=== PATIENT | male | born 1985 | race Caucasian/White ===

== ENCOUNTER 2019-02-09 07:23 | Inpatient (IN) ==
[2019-02-09] MEDS ORDERED: Albuterol 2.5 MG/3 ML NEBULIZER IH ONE (08:09)
[2019-02-09] MEDS ORDERED: CeFAZolin Syr 2,000MG/20 ML 2,000 MG/20 ML SYRINGE IVPB ONE (08:09)
[2019-02-09] MEDS ORDERED: Ringers Solution, Lactated 1,000 ML IVC SCH (08:15)
[2019-02-09] MEDS ORDERED: *HR* Midazolam HCl 2 MG/2 ML VIAL ONE (08:17)
[2019-02-09] MEDS ORDERED: *HR* FentaNYL (PF) 100 MCG/2 ML VIAL ONE (08:17)
[2019-02-09] MEDS ORDERED: *HR* Propofol 200 MG/20 ML VIAL IVP ONE (08:17)
[2019-02-09] MEDS ORDERED: Acetaminophen IV 1,000 MG/100 ML INFUS..BTL IVPB ONE (08:19)
[2019-02-09] MEDS ORDERED: *HR* Labetalol 20 MG/4 ML SYRINGE IVP PRN (08:19)
[2019-02-09] MEDS ORDERED: *HR* Rocuronium Bromide 50 MG/5 ML VIAL ONE (08:19)
[2019-02-09] MEDS ORDERED: Ketorolac 30 MG/ML VIAL IVP ONE (08:19)
[2019-02-09] MEDS ORDERED: Famotidine 20 MG/2 ML VIAL IVP ONE (08:19)
[2019-02-09] MEDS ORDERED: Gabapentin 300 MG CAPSULE PO ONE (08:19)
[2019-02-09] MEDS ORDERED: Ondansetron 4 MG/2 ML VIAL ONE (08:19)
[2019-02-09] MEDS ORDERED: Ondansetron 4 MG/2 ML VIAL IVP ONE (08:19)
[2019-02-09] MEDS ORDERED: Lidocaine -MPF 2% 2 ML VIAL ONE ×2 (08:19→09:24)
[2019-02-09] MEDS ORDERED: *HR* OxyCODONE Immed Rel 5 MG TABLET PO PRN (08:19)
[2019-02-09] MEDS ORDERED: *HR* HYDROmorphone (PF) 1 MG/ML SYRINGE IVP PRN (08:19)
[2019-02-09] MEDS ORDERED: Dexamethasone 4 MG/ML VIAL ONE (08:19)
[2019-02-09] MEDS ORDERED: *HR* Promethazine 25 MG/ML VIAL IVP PRN (08:19)
[2019-02-09] MEDS ORDERED: *HR* Succinylcholine 200 MG/10 ML VIAL IVP ONE (08:19)
[2019-02-09] MEDS ORDERED: Ketorolac 30 MG/ML VIAL ONE (08:20)
--- NOTE | 2019-02-09 08:23 | Anesthesia Evaluation PreOp ---
Date of Encounter: 02/09/19 Time of Encounter: 08:21 - Past History Planned Operation: bronch, right chest wall resection, robotic RUL resecti Cardiac History: Denies any Significant Hx Pulmonary History: Smoker (1/2 ppd), Other (pulmonary nodule) Other Medical History: Denies Any Significant HX Anesthesia History: No Prior Anesthetic Complications, Past Anesthesia (cystic hygroma removal 3 months old right chest) Alcohol Use: none Drug use: none Medications and Allergies RX: No Known Home Drugs 02/09/19 [History] Allergy/AdvReac Type Severity Reaction Status Date / Time No Known Allergies Allergy Verified 02/09/19 07:48 - Meds/Allergy Pre-op Review Medications Reviewed: Yes Allergies Reviewed: Yes Beta Blockers on Current Med List: No Anesthesia Results - Labs Laboratory Tests 01/13/19 01/13/19 14:52 14:52 WBC 12.9 H Hgb 14.7 Hct 44.8 Plt Count 268 Sodium 138 Potassium 3.9 Chloride 106 Carbon Dioxide 25 BUN 14 Creatinine 0.83 Est GFR (Non-Af Amer) > 60 - Imaging EKG: report reviewed Additional studies: PFT 01/2019 INTERPRETATION: Adequate for Interpretation Spirometry shows mild airway restrictive disease and FEV1 is reversible with postbronchodilator FEV1 is 4 L and 85% predicted. Following Bronchodilator, there is improvement in FEV1 by 11%. Lung Volumes Total lung capacity moderately reduced suggesting restrictive lung defect. Diffusion Capacity is normal. Flow Volume Loop: Normal. Anesthesia Exam Vital Signs/O2 Sat/Glucose, Most Recent Temp Pulse Resp BP Pulse Ox 97.7 F 102 18 128/83 97 02/09/19 07:39 02/09/19 07:39 02/09/19 07:39 02/09/19 07:39 02/09/19 07:39 - HEENT Pupil (Motor): Pupils equal Mallampati: II Teeth: Normal Oral Opening: Greater than 3 - RAILROAD CARMAN LOC: Oriented RAILROAD CARMAN Motor: Normal RUE, Normal LUE, Normal RLE, Normal LLE, Normal Face RAILROAD CARMAN Sensory: Normal: RUE, LUE, RLE, LLE, Face - Cardiac Rhythm: Regular Murmur: None - Pulmonary Breath Sounds: bilateral Clear Respiratory Effort: Symmetrical Anesthesia Assess/Plan ASA Score: 2 Level of consciousness: Cooperative, Oriented Anesthetic Plan: General Monitoring Plan: Standard Monitors Recovery Plan: PACU
--- NOTE | 2019-02-09 08:34 | History & Physical Report ---
Date of Encounter: 02/09/19 Time of Encounter: 08:33 24 Hour HP Update - Instructions Instructions: If the History and Physical is less than 30 days old and was completed prior to A.M. admission and or procedure and has NOT been updated on calendar day of procedure please complete this update prior to performing procedure. - Update Patient reports changes in Medical Condition: No Changes in examination, assessment, or condition: No Changes in Medication: No Preop tests/diagnostics Reviewed: Yes Pre-Op MRSA Screen: Negative Surgery Remains Indicated: Yes Consent for Planned Operative Procedure(s) Verified: Yes - Pre-Operative Checklist Preoperative Checklist Indicated: Yes Prophylactic Antibiotic Ordered: Yes Home Medications Include Beta Sho: No Beta Sho Taken Today (Day of Surgery): No Beta Sho Taken Yesterday (Day Prior to Surgery): No Is VTE Prophylaxis Indicated?: Yes
[2019-02-09] MEDS ORDERED: *HR* PHENYLEPHRINE 1,000 MCG/10 ML SYRINGE IVP ONE (09:33)
[2019-02-09] MEDS ORDERED: *HR* HYDROMORPHONE 2 MG/ML VIAL ONE (09:35)
[2019-02-09] MEDS ORDERED: EPHEDrine 50 MG/ML VIAL ONE (10:05)
--- NOTE | 2019-02-09 10:32 | Operative Note ---
Date of procedure: 02/09/19 Pre-op diagnosis: chest wall mass Post-op diagnosis: other (15 cm soft tissue encapsulated abscess) Procedure: resection of chest wall 15 cm abscess, soft tissue flaps Anesthesia: GETA Surgeon: Abel Patel Was there an portfolio assistant present: No Estimated blood loss (cc): 10 Specimen: cultures and permanent Condition: stable Disposition: PACU Procedure in Detail: This is a operative note on Fausto Morris. Patient was brought to the operating room and placed on the operating room table in the supine position. After undergoing general anesthesia with sequential compressive devices on bilateral lower extremities and perioperative antibiotics on board he was placed on the operating room table in the left lateral decubitus position with care to pad all pressure points. He was prepped and draped in usual sterile fashion. The previous chest incision that was performed when the patient was approximately 3 months of age for a cystic hygroma which occurs 20% of the time outside of the neck, was incised. Deep soft tissue flaps were performed circumferentially and deep to the current chest wall ABSCESS. THE WELL ENCAPSULATED ABSCESS WAS COMPLETELY EXCISED WITH A CAPSULECTOMY. INTRAOPERATIVE CULTURES WERE OBTAINED AND PERMANENT SPECIMEN SENnt. A 19-Slovak Marbin drains 2 were placed through separate skin incisions and secured into place with silk suture. Incision was then closed with interrupted 0 Vicryl deep sutures of running 3-0 Vicryl superficial dermis and then a 4-0 Monocryl subcuticular stitch with dressings consisting of Steri-Strips and sterile gauze. Patient was extubated taken to the recovery room breathing spontaneously and hemodynamically stable.
--- NOTE | 2019-02-09 10:54 | Anesthesia Evaluation Post Op ---
Date of Encounter: 02/09/19 Time of Encounter: 10:54 - Vital Signs Vital Signs: Vital Signs/O2 Sat/Glucose, Most Recent Temp Pulse Resp BP Pulse Ox 98.0 F 92 18 126/81 98 02/09/19 10:31 02/09/19 10:41 02/09/19 10:41 02/09/19 10:41 02/09/19 10:41 - Lungs Lungs: Clear Ascult./Percussion - Airway Airway: Non-obstructed - Cardiovascular Regular Rate - Mental Status Mental Status: Alert & Oriented, Answers Appropriately - Pain Pain Scale: 2 - Nausea Vomiting Nausea Vomiting: Not Present - Hydration Hydration: NPO - Discharge PostOp Status: Transfer Patient to floor
[2019-02-09] MEDS ORDERED: Ondansetron 4 MG/2 ML VIAL IVP PRN (12:08)
[2019-02-09] MEDS: 0.9 % Sodium Chloride 1,000 ML IVC SCH (12:23)
[2019-02-09] MEDS: Ketorolac 15 MG/ML VIAL IVP SCH ×2 (12:25→17:27)
[2019-02-09] MEDS: *HR* HYDROcodone/Acet 5/325 mg TABLET PO PRN ×2 (13:19→17:27)
[2019-02-09] MEDS: Gabapentin 300 MG CAPSULE PO SCH ×2 (15:41→20:19)
[2019-02-09] MEDS: Sulfamethoxazole/Trimeth DS 1 EACH TABLET PO SCH (20:19)
[2019-02-10] MEDS: Ketorolac 15 MG/ML VIAL IVP SCH ×4 (00:29→17:49)
[2019-02-10] MEDS: 0.9 % Sodium Chloride 1,000 ML IVC SCH (01:44)
[2019-02-10] MEDS: *HR* HYDROcodone/Acet 5/325 mg TABLET PO PRN ×2 (03:20→16:15)
[2019-02-10] MEDS: Gabapentin 300 MG CAPSULE PO SCH ×3 (08:48→20:41)
[2019-02-10] MEDS: Sulfamethoxazole/Trimeth DS 1 EACH TABLET PO SCH ×2 (08:48→20:41)
--- NOTE | 2019-02-10 09:43 | Cardiothoracic Progress Note ---
Date of Encounter: 02/10/19 Time of Encounter: 09:40 - Assessment and plan (1) Abscess of chest wall Current Visit: Yes Status: Acute The assessment and plan as outlined above was discussed with the patient and/or family members who expressed understanding and agreement. All questions were answered. rounded with nurse stop ivf, tele and continuous pulse ox. awaiting OR cultures. Vital Signs, Last 4 Hours Temp Pulse Resp BP Pulse Ox 02/10/19 07:19 97.6 F 68 18 122/80 98 Oxgyen Flow Rate Oxygen Flow Rate (LPM) 0 Clinical Data, last 8 Hours Output, Urine Amount 450 Weight 02/08/19 02/09/19 02/10/19 23:59 23:59 23:59 Weight 95.254 kg 100.2 kg - Physical Examination General: Conversant, No Apparent Distress, Well developed, Well nourished HEENT: Atraumatic, Normocephaly Cardiac: Reg Rate and Rhythm, Normal S1 and S2, No Murmur Incision: No signs of infection, Dry/intact dressing Lungs: Normal Breath Sounds Neuro: Alert and responsive, No focal deficits noted, Cranial nerves intact, Motor nerves intact Skin: Other Consult Discharge Plan - Plan Referrals: Rosita Mcintyre, TRANSFER STATION ATTENDANT [Primary Care Provider] -
[2019-02-11] MEDS: Ketorolac 15 MG/ML VIAL IVP SCH ×2 (00:11→05:12)
[2019-02-11] MEDS: *HR* HYDROcodone/Acet 5/325 mg TABLET PO PRN (06:00)
[2019-02-11] MEDS: Sulfamethoxazole/Trimeth DS 1 EACH TABLET PO SCH (07:25)
[2019-02-11] MEDS: Gabapentin 300 MG CAPSULE PO SCH (07:25)
--- NOTE | 2019-02-11 07:34 | Discharge Summary ---
Orders not resulted at time of discharge: Pending orders 02/01/19 07:06 Red Blood Cells [BBK] Routine 02/09/19 09:35 AFB Culture, Body Fluid [TB] Routine AFB Smear [TB] Routine Culture,Anaerobic [RM] Routine Culture,Body Fluid [RM] Routine Fungal Culture [MYC] Routine 02/09/19 09:52 Surgical Pathology [PTH] Routine Date of Encounter: 02/11/19 Time of Encounter: 07:15 - Discharge Diagnosis (1) Abscess of chest wall Priority: Primary Status: Acute - Hospital Course Hospital course: Mr. 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 The patient had a recurrent mass in the same area and chest CT revealed a 15 cm diameter well encapsulated cystic mass. He underwent right lateral chest wall mass excision. His postoperative course was uncomplicated. He was discharged home on POD #2 with two NANCY drains in place. These were immediately removed in the office by Dr. Abel Patel. - Time Spent with Patient Total time spent providing and/or coordinating discharge services: - Discharge Medications Prescriptions: New Sulfamethoxazole/Trimeth DS [Bactrim Ds] 1 each PO BID tablet Home Medications: Sulfamethoxazole/Trimeth DS [Bactrim Ds] 1 each PO BID tablet 02/11/19 [Rx] Allergies/Adverse Reactions: Allergy/AdvReac Type Severity Reaction Status Date / Time No Known Allergies Allergy Verified 02/09/19 07:48 Date of admission: 02/09/19 11:28 Primary care physician: Rosita Mcintyre CNP Procedure(s) Performed: 1. Right lateral chest wall mass excision performed 02/09/2019. Discharging clinician: Tami Patton Anticipated date of discharge: 02/11/19 Physical Examination Vital Signs, Last 4 Hours Temp Pulse Resp BP Pulse Ox 02/11/19 04:06 98.1 F 68 17 123/72 96 General: Conversant, No Apparent Distress HEENT: Atraumatic, Normocephaly, Trachea midline Neck: No JVD, Normal carotid pulses Cardiac: Reg Rate and Rhythm, Normal S1 and S2, No Murmur Lungs: Normal Breath Sounds, No Wheeze, Rales, Rhonchi Neuro: Alert and responsive, No focal deficits noted Vascular: Normal capillary refill Abdomen: Soft, Non-tender Skin: No rashes noted on visualized skin Extremities: No Clubbing, No Cyanosis, No Edema, Normal Pulses - Patient Status Disposition: Home, Self-Care Condition: Good Functional capacity at discharge: independent ambulation Overall status at discharge: patient is back to baseline - Discharge Instructions Follow Up With: Abel Patel MD [Partnered Physician] - 03/06/19 8:45 am Rosita Mcintyre CNP [Primary Care Provider] - 02/15/19 10:00 am - Diet and Activity Activity: no driving for four weeks, no lifting greater than 10 pounds for eight weeks Diet: advance to your usual diet
[2019-02-11 08:09] VITALS: BP 132/84
== END 2019-02-11 08:55 | disposition home or self-care (01) | DRG 581 ==
LOC: SAMDAY 07:23 → 2NNU 11:28 → 2ANU 02-10 11:24
PROVIDERS: ADMIT Thoracic Surgery (Cardiothoracic Vascular Surgery); ATTEND Thoracic Surgery (Cardiothoracic Vascular Surgery)